=== PATIENT | female | born 1980 | race Two or more races ===

== ENCOUNTER → 2019-04-15 | Outpatient (CLI) | payer OTHER | END | disposition home or self-care (01) | LOC: PRENATAL 08:00 | DX: O26.22 Pregnancy care for patient with recurrent pregnancy loss, second trimester (principal); O36.80X1 Pregnancy with inconclusive fetal viability, fetus 1; O34.41 Maternal care for other abnormalities of cervix, first trimester ==

== ENCOUNTER → 2019-05-26 | Outpatient (CLI) | payer OTHER | END | disposition home or self-care (01) | LOC: PRENATAL 05-23 08:00 | DX: O35.3XX1 Maternal care for (suspected) damage to fetus from viral disease in mother, fetus 1 (principal); O26.22 Pregnancy care for patient with recurrent pregnancy loss, second trimester; O60.02 Preterm labor without delivery, second trimester; O29.5X Other complications of spinal and epidural anesthesia during pregnancy; O34.42 Maternal care for other abnormalities of cervix, second trimester ==

== ENCOUNTER 2020-12-01 08:45 | Outpatient (CLI) | payer OTHER | END 2020-12-01 09:45 | disposition home or self-care (01) | LOC: PRENATAL 08:45 | PROVIDERS: ATTEND Obstetrics & Gynecology Maternal & Fetal Medicine | DX: O34.41 Maternal care for other abnormalities of cervix, first trimester (principal); Z36.89 Encounter for other specified antenatal screening; O36.80X1 Pregnancy with inconclusive fetal viability, fetus 1; O09.521 Supervision of elderly multigravida, first trimester; Z3A.12 12 weeks gestation of pregnancy ==

== ENCOUNTER 2021-01-26 07:56 | Outpatient (CLI) | payer OTHER | END 2021-01-26 09:11 | disposition home or self-care (01) | LOC: PRENATAL 07:56 | PROVIDERS: ATTEND Obstetrics & Gynecology Maternal & Fetal Medicine | DX: O35.0XX1 Maternal care for (suspected) central nervous system malformation in fetus, fetus 1 (principal); O35.3XX1 Maternal care for (suspected) damage to fetus from viral disease in mother, fetus 1; O98.512 Other viral diseases complicating pregnancy, second trimester; O35.1XX1 Maternal care for (suspected) chromosomal abnormality in fetus, fetus 1; O10.012 Pre-existing essential hypertension complicating pregnancy, second trimester; Z36.89 Encounter for other specified antenatal screening; Z3A.20 20 weeks gestation of pregnancy ==

== ENCOUNTER 2021-04-19 08:48 | Outpatient (CLI) | payer OTHER | END 2021-04-19 09:36 | disposition home or self-care (01) | LOC: PRENATAL 08:48 | PROVIDERS: ATTEND Obstetrics & Gynecology Maternal & Fetal Medicine | DX: O09.529 Supervision of elderly multigravida, unspecified trimester (principal); O35.0XX0 Maternal care for (suspected) central nervous system malformation in fetus, not applicable or unspecified; O26.849 Uterine size-date discrepancy, unspecified trimester; O36.4XX0 Maternal care for intrauterine death, not applicable or unspecified; O10.019 Pre-existing essential hypertension complicating pregnancy, unspecified trimester ==